=== PATIENT | male | born 1980 | race Caucasian/White ===

== ENCOUNTER 2020-06-21 07:26 | Emergency (ER) | payer OTHER ==
[~2020-06-21] VITALS: Ht 160 cm; Wt 68.0 kg
[2020-06-21 07:50] VITALS: BP 164/112
--- NOTE | 2020-06-21 07:54 | NUR ---
BIB SELF C/O FEVER, H[place], BODY ACHE X 3 DAYS. PT HAD COVID TESTED +. TOOK TYLENOL AT 5 AM TODAY. ORAL TEMP 98.2 AT THIS TIME.MED HX: GALL BLADDER REMOVAL. DENIES N/V/D; SKIN IS PINK/WARM/DRY; AAOX4 WITH EVEN AND STEADY GAIT; LUNGS CLEAR BL; HR EVEN AND REGULAR; PT DENIES ANY CP, SOB OR COUGH AT THIS TIME; PATIENT STATES PAIN OF 9/10 AT THIS TIME.
[2020-06-21 08:16] VITALS: BP 164/112
--- NOTE | 2020-06-21 08:16 | NUR ---
Patient discharged with v/s stable. Written and verbal after care instructions given and explained. Patient alert, oriented and verbalized understanding of instructions. Ambulatory with steady gait. All questions addressed prior to discharge. ID band removed. Patient advised to follow up with PMD. Rx of ACETAMINOPHEN, ATIVAN, IBUPROFEN given. Patient educated on indication of medication including possible reaction and side effects. Opportunity to ask questions provided and answered.
== END 2020-06-21 08:16 | disposition home or self-care (01) ==
LOC: MED 07:26
DX: U07.1 COVID-19 (principal); B34.9 Viral infection, unspecified
CPT/HCPCS: 99283

== ENCOUNTER 2020-06-22 15:53 | Emergency (ER) | payer OTHER, SELFPAY ==
[~2020-06-22] VITALS: Ht 170.2 cm; Wt 67.1 kg
[2020-06-22 15:53] VITALS: BP 146/99
--- NOTE | 2020-06-22 15:53 | NUR ---
Pt ambulated to ER bed 9.
--- NOTE | 2020-06-22 15:59 | NUR ---
39 y/o male a&oX4 COVID 19 + 06/15/20. Insomnia. Pt states he needs reinforcement on current prescribed medications. PMH: Anxiety Rx: Ativan, ibuprofen, acetaminophen NKA
[2020-06-22 16:07] VITALS: BP 146/99
--- NOTE | 2020-06-22 16:07 | NUR ---
Venice thakur in ED - 06/22/20 at 1633 by [facility] Patient discharged with v/s stable. Written and verbal after care instructions given and explained. Patient verbalized understanding. Ambulatory with steady gait. All questions addressed prior to discharge. Advised to follow up with PMD.
--- NOTE | 2020-06-22 16:33 | NUR ---
Patient discharged with v/s stable. Written and verbal after care instructions given and explained. Patient alert, oriented and verbalized understanding of instructions. Ambulatory with steady gait. All questions addressed prior to discharge. ID band removed. Patient advised to follow up with PMD. Rx of diphenhydramine 25mg TID PRN given. Patient educated on indication of medication including possible reaction and side effects. Opportunity to ask questions provided and answered.
== END 2020-06-22 16:53 | disposition home or self-care (01) ==
LOC: MED 16:43
DX: U07.1 COVID-19 (principal); F41.9 Anxiety disorder, unspecified; G47.00 Insomnia, unspecified; Z98.890 Other specified postprocedural states
CPT/HCPCS: 99282

== ENCOUNTER 2020-07-01 11:31 | Emergency (ER) | payer OTHER, SELFPAY ==
[~2020-07-01] VITALS: Ht 160 cm; Wt 71.7 kg
[2020-07-01 11:41] VITALS: BP 136/81
--- NOTE | 2020-07-01 11:50 | NUR ---
Patient in tent for covid precaution
--- NOTE | 2020-07-01 11:54 | NUR ---
39 y/o male from home tested + for covid 2 wks ago states he has episodes of anxiety. Pt states he is having difficulty sleeping at night due to feelings of "convulsions"/shaking. RR even and unlabored. Pt afebrile at this time. Denies pain. VSS medhx: denies
--- NOTE | 2020-07-01 12:20 | NUR ---
Dr. Navarro evaluating patient outside in [facility].
[2020-07-01 13:32] VITALS: BP 128/84
--- NOTE | 2020-07-01 13:32 | NUR ---
Patient discharged with v/s stable. Written and verbal after care instructions given and explained. Patient alert, oriented and verbalized understanding of instructions. Ambulatory with steady gait. All questions addressed prior to discharge. ID band removed. Patient advised to follow up with PMD. Rx of diphenhydramine Hydrochloriode 25mg given. Patient educated on indication of medication including possible reaction and side effects. Opportunity to ask questions provided and answered.
== END 2020-07-01 13:32 | disposition home or self-care (01) ==
LOC: MED 11:31
DX: G47.00 Insomnia, unspecified (principal); F41.9 Anxiety disorder, unspecified; Z90.49 Acquired absence of other specified parts of digestive tract
CPT/HCPCS: 71045; 99283